=== PATIENT | female | born 1985 | race Caucasian/White ===

== ENCOUNTER 2019-04-12 21:18 | Emergency (ER) | payer BC, OTHER ==
[2019-04-13 00:44] LABS: ADD MAN DIFF? NO
[2019-04-13] MEDS: ONDANSETRON (ODT) 4 MG TAB ODT (00:48)
[2019-04-13] MEDS: KETOROLAC 30 MG INJ IM (00:48)
[2019-04-13 00:50] LABS: WHITE BLOOD COUNT 9.3 10^3/ul (4.8-10.8)
[2019-04-13 00:50] LABS: BASOPHIL # 0.1 10^3/ul (0.0-0.1); BASOPHILS % 0.5 % (0.0-2.0); EOSINOPHILS # 0.1 10^3/ul (0.0-0.5); EOSINOPHILS % 1.3 % (0.0-7.0); HEMATOCRIT 40.6 % (37.0-47.0); HEMOGLOBIN 13.7 g/dl (12.0-16.0); LYMPHOCYTES # 2.5 10^3/ul (0.8-2.9); LYMPHOCYTES % 26.5 % (15.0-51.0); MEAN CORPUSCULAR HEMOGLOBIN 29.6 pg (29.0-33.0); MEAN CORPUSCULAR HGB CONC 33.7 g/dl (32.0-37.0); MEAN CORPUSCULAR VOLUME 87.7 fl (82.0-101.0); MEAN PLATELET VOLUME 9.3 fl (7.4-10.4); MONOCYTE # 0.8 10^3/ul (0.3-0.9); MONOCYTES % 8.4 % (0.0-11.0); NEUTROPHIL # 5.8 10^3/ul (1.6-7.5); NEUTROPHILS % 62.9 % (39.0-77.0); PLATELET COUNT 382 10^3/UL (140-415); RED BLOOD COUNT 4.63 10^6/ul (4.20-5.40); RED CELL DISTRIBUTION WIDTH 12.5 % (11.5-14.5)
[2019-04-13 01:10] LABS: INR 0.96; PROTIME 12.9 Sec (11.9-14.9)
[2019-04-13 01:11] LABS: ANION GAP 8 (5-13); BLOOD UREA NITROGEN 14 mg/dl (7-20); CARBON DIOXIDE 26 mmol/L (21-31); CHLORIDE 104 mmol/L (97-110); CREATININE 0.68 mg/dl (0.44-1.00); Estimated GFR > 60 mL/min (>60); GLUCOSE 104 mg/dl (70-220); PARTIAL THROMBOPLASTIN TIME 27.9 Sec (23.0-35.0); POTASSIUM 3.8 mmol/L (3.5-5.1); SODIUM 138 mmol/L (135-144); THROMBIN TIME 16.8 SEC (13.8-19.1)
[2019-04-13 01:14] LABS: PLATELET COUNT 382 10^3/UL (140-415)
[2019-04-13 01:20] LABS: ADD UMIC NO; UR ASCORBIC ACID NEGATIVE (NEGATIVE); UR BACTERIA FEW /HPF (NONE SEEN); UR BILIRUBIN (Dip) NEGATIVE (NEGATIVE); UR BLOOD (Dip) NEGATIVE (NEGATIVE); UR CLARITY CLEAR (CLEAR); UR COLOR YELLOW (YELLOW); UR GLUCOSE (Dip) NEGATIVE (NEGATIVE); UR KETONES (Dip) NEGATIVE (NEGATIVE); UR LEUKOCYTE ESTERASE (Dip) NEGATIVE Leu/ul (NEGATIVE); UR MUCUS FEW /HPF (NONE SEEN); UR NITRITE (Dip) NEGATIVE (NEGATIVE); UR RBC 0 /HPF (0-5); UR SPECIFIC GRAVITY (Dip) 1.021 (1.003-1.030); UR SQUAMOUS EPITHELIAL CELL FEW /HPF (FEW); UR TOTAL PROTEIN (Dip) NEGATIVE (NEGATIVE); UR UROBILINOGEN (Dip) NEGATIVE (NEGATIVE); UR WBC 0 /HPF (0-5)
[2019-04-13 01:21] LABS: LIPASE 78 U/L (23-300)
[2019-04-13] MEDS: LIDOCAINE 2% (MDV) 20 ML INJ INJ (03:05)
[2019-04-13] MEDS: CEFTRIAXONE 250 MG INJ IM (03:05)
[2019-04-13] MEDS: AZITHROMYCIN 500 MG TAB PO (03:05)
== END 2019-04-13 03:32 | disposition home or self-care (01) ==
LOC: FTE 21:18
DX: N83.202 Unspecified ovarian cyst, left side (principal); N89.8 Other specified noninflammatory disorders of vagina
CPT/HCPCS: 36415; 76856; 80048; 81003; 81025; 83690; 84703; 85025; 85049; 85610; 85670; 85730; 87591; 96372; 99285-25